=== PATIENT | female | born 1970 | race Caucasian/White ===

== ENCOUNTER 2016-12-21 00:08 | Emergency (ER) | payer MEDICAID ==
[~2016-12-21] VITALS: Ht 142.2 cm; Wt 55.5 kg
[~2016-12-21 00:08] MED LIST: AMOX1TAB10 PO; DOCU-144 PO; FAMO20TA18 PO; HYDR-906 PO; PANT20TA2 PO; POLY17PO6 PO; PRED50TA PO; SUCR1TAB56 PO
[2016-12-21 00:19] VITALS: Ht 142.2 cm; Wt 55.5 kg
[2016-12-21] MEDS ORDERED: SOD CHLORIDE 0.9% 1,000 ML IV STA (02:40)
[2016-12-21] MEDS ORDERED: ONDANSETRON 4 MG INJ IV STA (02:40)
[2016-12-21] MEDS ORDERED: LIDOCAINE/MYLANTA 40 ML BTL PO STA (02:40)
[2016-12-21 03:12] LABS: ADD SCAN DIFF NO
[2016-12-21 03:18] LABS: ADD UMIC YES; URINE BILIRUBIN (Dip) NEGATIVE (NEGATIVE); URINE BLOOD (Dip) TRACE (NEGATIVE); URINE COLOR LT. YELLOW (YELLOW); URINE GLUCOSE (Dip) NEGATIVE (NEGATIVE); URINE KETONES (Dip) NEGATIVE (NEGATIVE); URINE LEUKOCYTE ESTERASE (Dip) NEGATIVE (NEGATIVE); URINE NITRITE (Dip) NEGATIVE (NEGATIVE); URINE TOTAL PROTEIN (Dip) NEGATIVE (NEGATIVE); URINE UROBILINOGEN (Dip) 0.2 E.U./dL (0.1-1.0)
[2016-12-21 03:34] LABS: BASOPHILS % 0.5 % (0.0-2.0); EOSINOPHILS # 0.2 10^3/ul (0.0-0.5); EOSINOPHILS % 3.3 % (0.0-7.0); HEMATOCRIT 38.1 % (37.0-47.0); HEMOGLOBIN 13.4 g/dl (12.0-16.0); LYMPHOCYTES # 2.4 10^3/ul (0.8-2.9); LYMPHOCYTES % 35.6 % (15.0-51.0); MEAN CORPUSCULAR HEMOGLOBIN 30.6 pg (29.0-33.0); MEAN CORPUSCULAR HGB CONC 35.2 g/dl (32.0-37.0); MEAN PLATELET VOLUME 10.2 fl (7.4-10.4); MONOCYTE # 0.4 10^3/ul (0.3-0.9); NEUTROPHIL # 3.6 10^3/ul (1.6-7.5); NEUTROPHILS % 54.4 % (39.0-77.0); PLATELET COUNT 240 10^3/UL (140-415); RED BLOOD COUNT 4.38 10^6/ul (4.20-5.40); RED CELL DISTRIBUTION WIDTH 11.9 % (11.5-14.5); SQUAMOUS EPITHELIAL CELL,UR FEW; URINE RBCS 0-2 /HPF (0); WHITE BLOOD COUNT 6.7 10^3/ul (4.8-10.8)
[2016-12-21 03:35] LABS: BACTERIA,URINE RARE
[2016-12-21 03:55] LABS: ALANINE AMINOTRANSFERASE 26 IU/L (13-69); ALBUMIN 5.1 g/dl (3.3-4.9); ALBUMIN/GLOBULIN RATIO 1.75; ALKALINE PHOSPHATASE 91 IU/L (42-121); ANION GAP 12 (8-16); ASPARTATE AMINO TRANSFERASE 19 IU/L (15-46); BILIRUBIN,INDIRECT 0.3 mg/dl (0-1.1); BILIRUBIN,TOTAL 0.3 mg/dl (0.2-1.3); BLOOD UREA NITROGEN 10 mg/dl (7-20); CALCIUM 9.2 mg/dl (8.4-10.2); CARBON DIOXIDE 24 mmol/L (21-31); CHLORIDE 110 mmol/L (97-110); GLUCOSE 106 mg/dl (70-220); POTASSIUM 3.5 mmol/L (3.5-5.1); SODIUM 142 mmol/L (135-144)
[2016-12-21 04:09] LABS: TROPONIN-I < 0.012 ng/ml (0.00-0.12)
--- NOTE | 2016-12-21 04:18 | ERD ---
ER Documentation Chief Complaint Date/Time DATE: 12/21/16 TIME: 04:16 Chief Complaint EPIGASTRIC PAIN WITH NAUSEA X 1 HOUR. DIZZINESS 3 TIMES IN 1 HOUR HPI This is a 46 female, epigastric pain with nausea from an outpatient disease 3 times in the past hour as well. No fevers no chills. Pain is mild to moderate intensity, no exacerbating or alleviating factors. Burning sensation. No other current issues. ROS All systems reviewed and are negative except as per history of present illness. Medications Home Meds Active Scripts Prednisone* (Prednisone*) 50 Mg Tablet, 50 MG PO DAILY Y for INFLAMATION, #5 TAB Prov:KETTY TYLER PA-C 11/03/15 Amox Tr/Potassium Clavulanate (Amox Tr-K Clv 875-125 Mg Tab) 1 Tab Tablet, 1 TAB PO BID, #20 TAB Prov:KETTY TYLER PA-C 11/03/15 Pantoprazole* (Protonix*) 20 Mg Tablet.dr, 20 MG PO DAILY for 30 Days, TAB Prov:VITO CARBALLO MD 04/28/15 Famotidine* (Famotidine*) 20 Mg Tablet, 20 MG PO BID for 30 Days, TAB Prov:VITO CARBALLO MD 04/28/15 Polyethylene Glycol* (Miralax*) 17 Gm Powd.pack, 17 GM PO DAILY Y for CONSTIPATION for 30 Days, PACKET Prov:VITO CARBALLO MD 04/28/15 Docusate Sodium* (Colace*) 100 Mg Capsule, 100 MG PO BID for 30 Days, CAP Prov:VITO CARBALLO MD 04/28/15 Hydrocodone Bit-Acetaminophen ([place]) 5-325 Mg Tablet, 1 TAB PO Q4H Y for PAIN for 3 Days, TAB Prov:MONIQUE OLEARY MD 03/23/15 Reported Medications Sucralfate* (Carafate*) 1 Gm Tab, 1 GM PO AC MEALS AND BEDTIME, TAB 04/27/15 Allergies Allergies: Coded Allergies: morphine (Unverified Allergy, Unknown, TIGHTNESS OF CHEST, 11/02/15) PMhx/Soc History of Surgery: Yes (Cholecystectomy,Hysterectomy) Anesthesia Reaction: No Hx Neurological Disorder: No Hx Respiratory Disorders: No Hx Cardiac Disorders: No Hx Psychiatric Problems: No Hx Miscellaneous Medical Probl: Yes (Gallstones,Induced Menopause) Hx Alcohol Use: No Hx Substance Use: No Hx Tobacco Use: No Smoking Status: Never smoker Physical Exam Vitals Vital Signs Date Time Temp Pulse Resp B/P Pulse Ox O2 Delivery O2 Flow Rate FiO2 12/21/16 02:32 96.6 74 24 151/84 100 Room Air 12/21/16 00:19 96.6 87 24 159/89 100 Physical Exam Const: [] Head: Atraumatic Eyes: Normal Conjunctiva ENT: Normal External Ears, Nose and Mouth. Neck: Full range of motion..~ No meningismus. Resp: Clear to auscultation bilaterally Cardio: Regular rate and rhythm, no murmurs Abd: Soft, non tender, non distended. Normal bowel sounds Skin: No petechiae or rashes Back: No midline or flank tenderness Ext: No cyanosis, or edema Neur: Awake and alert Psych: Normal Mood and Affect Result Diagram: 12/21/16 0245 12/21/16 0245 Results 24 hrs Laboratory Tests Test 12/21/16 02:45 White Blood Count 6.710^3/ul Red Blood Count 4.3810^6/ul Hemoglobin 13.4g/dl Hematocrit 38.1% Mean Corpuscular Volume 87.0fl Mean Corpuscular Hemoglobin 30.6pg Mean Corpuscular Hemoglobin Concent 35.2g/dl Red Cell Distribution Width 11.9% Platelet Count 33008^3/UL Mean Platelet Volume 10.2fl Neutrophils % 54.4% Lymphocytes % 35.6% Monocytes % 6.0% Eosinophils % 3.3% Basophils % 0.5% Nucleated Red Blood Cells % 0.0/100WBC Neutrophils # 3.610^3/ul Lymphocytes # 2.410^3/ul Monocytes # 0.410^3/ul Eosinophils # 0.210^3/ul Basophils # 0.010^3/ul Nucleated Red Blood Cells # 0.010^3/ul Urine Color LT. YELLOW Urine Clarity CLEAR Urine pH 7.5 Urine Specific [place] 1.010 Urine Ketones NEGATIVE Urine Nitrite NEGATIVE Urine Bilirubin NEGATIVE Urine Urobilinogen 0.2 E.U./dL Urine Leukocyte Esterase NEGATIVE Urine Microscopic RBC 0-2/HPF Urine Microscopic WBC 0-2/HPF Urine Squamous Epithelial Cells FEW Urine Amorphous Phosphates FEW Urine Bacteria RARE Urine Hemoglobin TRACE Urine Glucose NEGATIVE% Urine Total Protein NEGATIVE Sodium Level 142mmol/L Potassium Level 3.5mmol/L Chloride Level 110mmol/L Carbon Dioxide Level 24mmol/L Anion Gap 12 Blood Urea Nitrogen 10mg/dl Creatinine 0.40mg/dl Glucose Level 106mg/dl Calcium Level 9.2mg/dl Total Bilirubin 0.3mg/dl Direct Bilirubin 0.00mg/dl Indirect Bilirubin 0.3mg/dl Aspartate Amino Transf (AST/SGOT) 19IU/L Alanine Aminotransferase (ALT/SGPT) 26IU/L Alkaline Phosphatase 91IU/L Troponin I < 0.012ng/ml Total Protein 8.0g/dl Albumin 5.1g/dl Globulin 2.90g/dl Albumin/Globulin Ratio 1.75 Lipase 119U/L Current Medications Medications (Trade) Dose Ordered Sig/Amina Route PRN Reason Start Time Stop Time Status Last Admin Dose Admin Sodium Chloride (NS) 1,000 ml @ 1,000 mls/hr Q1H STAT IV 12/21/16 02:40 12/21/16 03:39 DC 12/21/16 02:55 Ondansetron HCl (Zofran Inj) 4 mg ONCE STAT IV 12/21/16 02:40 12/21/16 02:49 DC 12/21/16 02:55 Miscellaneous Medication (Gi Cocktail (2)) 40 ml ONCE STAT PO 12/21/16 02:40 12/21/16 02:49 DC 12/21/16 02:54 Procedures/MDM EKG: Rate/Rhythm: [Normal Sinus Rhythm] QRS, ST, T-waves: [No changes consistent w/ acute ischemia] Impression: [No evidence of ischemia or arrhythmia] Chest X-ray 1V Interpreted by me: Soft Tissue: No acute abnormalities Bones: No acute abnormalities Mediastinum/Cardiac Silhouette/Lungs: [No acute abnormalities] Medical decision-making: This is a 46-year-old comes in for epigastric abdominal pain likely gastritic versus cholestatic in nature. No evidence of fever. No evidence of increased white count. Patient will be discharged home. Told return in 8 hours for serial abdominal exams. Departure Diagnosis: Primary Impression: Abdominal pain Condition: Stable DIAN JOHNSON Dec 21, 2016 04:17
[2016-12-21] MEDS ORDERED: TRAM50TA2 PO (04:25)
[2016-12-21] MEDS ORDERED: SUCR1TAB56 PO (04:25)
--- NOTE | 2016-12-21 04:31 | RADRPT ---
PROCEDURE: Chest. CLINICAL INDICATION: Chest pain. TECHNIQUE: Single frontal view of the chest was obtained. COMPARISON: None. FINDINGS: The cardiac silhouette is within normal limits. The aortic arch is unremarkable. There is no focal consolidation, vascular congestion or pleural effusion. There is no pneumothorax. IMPRESSION: No evidence for active cardiopulmonary disease. .Giles Uriarte MD, MD Date Time Electronically viewed and signed by .Giles Uriarte MD, on 12/21/2016 04:31 .T/
[2016-12-21 04:32] VITALS: BP 131/77; PULSE 71; RESP 24; TEMP 96.6
== END 2016-12-21 04:34 | disposition home or self-care (01) ==
LOC: E/R 00:08
DX: R10.13 Epigastric pain (principal); R11.0 Nausea
CPT/HCPCS: 71010; 80053; 81001; 83690; 84484; 85025; 93005; J2405; J7030; Z7610; 36415; 96374

== ENCOUNTER 2017-09-08 03:13 | Emergency (ER) | END 2017-09-08 04:39 | disposition home or self-care (01) ==

== ENCOUNTER 2018-04-23 04:52 | Emergency (ER) | END 2018-04-23 14:48 | disposition home or self-care (01) ==

== ENCOUNTER 2018-07-16 02:31 | Emergency (ER) | payer MEDICAID ==
[~2018-07-16] VITALS: Wt 53.3 kg
[~2018-07-16 02:31] MED LIST changes: +ACET500C5 PO; +AMOX500C2 PO; +IBUP-1542 PO; +ONDA4TAB14 PO; +TRAM50TA2 PO
[2018-07-16 02:34] VITALS: RESP 18
--- NOTE | 2018-07-16 02:58 | ERD ---
ER Documentation Chief Complaint Chief Complaint cough/sore throat/runny nose x 8 days HPI This is a 48-year-old female who presents emergency department with complaints of cough, sore throat, runny nose for about 8 days. LMP: Stated that it was 2013. A0. Denies headache, head injury, loss of consciousness, dizziness, neck pain, neck stiffness, throat pain, difficulty swallowing, difficulty breathing lying flat, shoulder pain, chest pain, back pain, abdominal pain, nausea, vomiting, constipation, diarrhea, urinary symptoms, or possibility being pre gnant, loss of bowel and bladder control, trauma, injury, falls, difficulty walking due to pain, numbness or tingling sensation, calf pain, recent travel, recent major surgery in the last 3 weeks, calf pain, recent long travel, recent exposure to any illness, recent antibiotic use in the last 3 months, fever, chills, seizures. Past medical history: Gastritis. GERD. Medication: Protonix. Surgical history: Cholecystectomy. Hysterectomy. Social: Denies smoking, use of alcoholic beverages, use of illegal drugs. ROS All systems reviewed and are negative except as per history of present illness. Medications Home Meds Active Scripts Benzonatate* (Tessalon Perle*) 100 Mg Capsule, 100 MG PO Q8H PRN for COUGH, #15 CAP Prov:DANIELLE BLEDSOE 07/16/18 Ibuprofen* (Motrin*) 600 Mg Tab, 600 MG PO Q6H PRN for PAIN AND OR ELEVATED TEMP, #30 TAB Prov:DANIELLE BLEDSOE 07/16/18 Prednisone* (Prednisone*) 20 Mg Tab, 60 MG PO DAILY for 5 Days, TAB Prov:DANIELLE BLEDSOE 07/16/18 Albuterol Sulfate* (Proair HFA*) 8.5 Gm Hfa.aer.ad, 2 PUFF INH Q4H PRN for WHEEZING AND SOB, #1 INHALER Prov:DANIELLE BLEDSOE 07/16/18 Amoxicillin/Potassium Clav (Amox-Clav 875-125 mg Tablet) 875-125 mg Tab, 1 TAB PO BID for 10 Days, #20 TAB Prov:DANIELLE BLEDSOE 07/16/18 Ondansetron (Ondansetron Odt) 4 Mg Tab.rapdis, 4 MG PO Q6H PRN for NAUSEA AND/OR VOMITING, #20 TAB Prov:JOSE MORRIS MD 04/23/18 Amoxicillin* (Amoxicillin*) 500 Mg Cap, 500 MG PO TID for 10 Days, CAP Prov:MARC BARTON NP 09/08/17 Acetaminophen* (Tylophen*) 500 Mg Capsule, 1 CAP PO Q6H PRN for PAIN AND OR ELEVATED TEMP, #20 CAP Prov:MARC BARTON NP 09/08/17 Ibuprofen* (Motrin*) 600 Mg Tab, 600 MG PO Q6H PRN for PAIN AND OR ELEVATED TEMP, #30 TAB Prov:MARC BARTON SHANK BREAKER 09/08/17 Tramadol HCl (Tramadol HCl) 50 Mg Tablet, 50 MG PO Q4 PRN for PAIN, #20 TAB Prov:DIAN JOHNSON 12/21/16 Sucralfate* (Carafate*) 1 Gm Tab, 1 GM PO QID, #20 TAB Prov:DIAN JOHNSON 12/21/16 Prednisone* (Prednisone*) 50 Mg Tablet, 50 MG PO DAILY PRN for INFLAMATION, #5 TAB Prov:KETTY TYLER PA-C 11/03/15 Amox Tr/Potassium Clavulanate (Amox Tr-K Clv 875-125 Mg Tab) 1 Tab Tablet, 1 TAB PO BID, #20 TAB Prov:KETTY TYLER PA-C 11/03/15 Pantoprazole* (Protonix*) 20 Mg Tablet.dr, 20 MG PO DAILY for 30 Days, TAB Prov:VITO CARBALLO MD 04/28/15 Famotidine* (Famotidine*) 20 Mg Tablet, 20 MG PO BID for 30 Days, TAB Prov:VITO CARBALLO MD 04/28/15 Polyethylene Glycol* (Miralax*) 17 Gm Powd.pack, 17 GM PO DAILY PRN for CONSTIPATION for 30 Days, PACKET Prov:VITO CARBALLO MD 04/28/15 Docusate Sodium* (Colace*) 100 Mg Capsule, 100 MG PO BID for 30 Days, CAP Prov:VITO CARBALLO MD 04/28/15 Hydrocodone Bit-Acetaminophen ([place]) 5-325 Mg Tablet, 1 TAB PO Q4H PRN for PAIN for 3 Days, TAB Prov:MONIQUE OLEARY MD 03/23/15 Reported Medications Sucralfate* (Carafate*) 1 Gm Tab, 1 GM PO AC MEALS AND BEDTIME, TAB 04/27/15 Allergies Allergies: Coded Allergies: morphine (Unverified Allergy, Unknown, TIGHTNESS OF CHEST, 11/02/15) PMhx/Soc History of Surgery: Yes (Cholecystectomy,Hysterectomy) Anesthesia Reaction: No Hx Neurological Disorder: No Hx Respiratory Disorders: No Hx Cardiac Disorders: No Hx Psychiatric Problems: No Hx Miscellaneous Medical Probl: Yes (Gallstones,Induced Menopause) Hx Alcohol Use: No Hx Substance Use: No Hx Tobacco Use: No Physical Exam Vitals Vital Signs Date Temp Pulse Resp B/P (MAP) Pulse Ox O2 O2 Flow FiO2 Time Delivery Rate 07/16/18 98.0 90 160/98 92 Room Air 04:06 (118) 07/16/18 97.2 91 18 159/100 99 02:34 (119) Physical Exam Const: No acute distress Head: Atraumatic Eyes: Normal Conjunctiva ENT: Normal External Ears, Nose and Mouth. Bilateral ears: TMs are not er ythematous. No mastoid tenderness. No hearing loss. Nose: There is frontal or maxillary sinus tenderness to palpation. Throat: Uvula is in midline and nondisplaced. Tonsils are +1 with no redness and no exudates. Tolerating secretions. Patent airway. Speaks full and clear sentences. No tripoding. Neck: Full range of motion. No meningismus. Resp: Clear to auscultation bilaterally Cardio: Regular rate and rhythm, no murmurs Abd: Soft, non tender, non distended. Normal bowel sounds Skin: No petechiae or rashes Back: No midline or flank tenderness Ext: No cyanosis, or edema Neur: Awake and alert. No neurological deficits. Psych: Normal Mood and Affect Procedures/MDM Diagnostic tests: Chest x-ray: No evidence for active cardiopulmonary disease. Treatment: Not applicable. Re-evaluation: Not applicable. Differential diagnosis I have low suspicion for sepsis, mastoiditis, peritonsillar abscess, meningitis, pneumonia, pulmonary tuberculosis, severe dehydration. Final diagnosis: Sinusitis. Bronchitis. Cough. Prescription: Augmentin. Motrin. Tylenol. Pro-air. Prednisone. Tessalon Perles. Follow-up with PCP in the next 24-48 hours. Come back here in the emergency department for any new symptoms or any worsening symptoms. All questions and concerns were answered. Patient and family members verbalized understanding and agreed with plan of care. Hemodynamically stable on discharge. Departure Diagnosis: Primary Impression: Cough Additional Impressions: Sinusitis Bronchitis Condition: Stable Additional Instructions: Follow-up with PCP in the next 24-48 hours. Come back here in the emergency department for any new symptoms or any worsening symptoms. DANIELLE BLEDSOE Jul 16, 2018 02:57
[2018-07-16] MEDS ORDERED: ALBU8.5H8 INH (03:48)
[2018-07-16] MEDS ORDERED: AMOX1TAB10 PO (03:48)
[2018-07-16] MEDS ORDERED: PRED20TA PO (03:49)
[2018-07-16] MEDS ORDERED: BENZ-6 PO (03:49)
[2018-07-16] MEDS ORDERED: IBUP-1542 PO (03:49)
[2018-07-16 04:06] VITALS: BP 160/98; PULSE 90
== END 2018-07-16 04:07 | disposition home or self-care (01) ==
LOC: FTE 02:31
DX: J32.9 Chronic sinusitis, unspecified (principal); J40 Bronchitis, not specified as acute or chronic
CPT/HCPCS: 71046; Z7502

== ENCOUNTER 2018-10-01 04:21 | Emergency (ER) | payer MEDICAID ==
[~2018-10-01] VITALS: Wt 52.5 kg
[~2018-10-01 04:21] MED LIST changes: +ALBU8.5H8 INH; +BENZ-6 PO; +MED4DP PO; +PRED20TA PO; +PROM5SYR2 PO
--- NOTE | 2018-10-01 06:44 | ERD ---
ER Documentation Chief Complaint Chief Complaint chest pain and cough possible exposure to tb HPI This is a 48-year-old female presents for intermittent chest pain and cough for the last 4 days. She has no prior history of coronary artery disease, she takes an inhaler intermittently, she states that she was recently exposed someone tuberculosis, her primary concern was that she may now have tuberculosis given the exposure. She has not had hemoptysis, no night sweats, no shortness of breath. There are no alleviating or aggravating factors. ROS All systems reviewed and are negative except as per history of present illness. Medications Home Meds Active Scripts Pantoprazole* (Protonix*) 20 Mg Tablet.dr, 20 MG PO DAILY for 30 Days, TAB Prov:VITO CARBALLO MD 04/28/15 Discontinued Reported Medications Sucralfate* (Carafate*) 1 Gm Tab, 1 GM PO AC MEALS AND BEDTIME, TAB 04/27/15 Discontinued Scripts Promethazine HCl/Codeine (Prometh-Codein 6.25-10 mg/5 ml) 5 Ml Syrup, 5 ML PO Q8, #120 ML Prov:KETTY TYLER PA-C 08/27/18 Methylprednisolone* (Medrol* DOSE PACK) 4 Mg/Dose-Pack Tab.ds.pk, 4 MG PO . D IRECTED, #1 PACKET Prov:KETTY TYLER PA-C 08/27/18 Benzonatate* (Tessalon Perle*) 100 Mg Capsule, 100 MG PO Q8H PRN for COUGH, #15 CAP Prov:PASILADANIELLE RAUSCH 07/16/18 Ibuprofen* (Motrin*) 600 Mg Tab, 600 MG PO Q6H PRN for PAIN AND OR ELEVATED TEMP, #30 TAB Prov:PASILADANIELLE RAUSCH 07/16/18 Prednisone* (Prednisone*) 20 Mg Tab, 60 MG PO DAILY for 5 Days, TAB Prov:PASILADANIELLE RAUSCH F 07/16/18 Albuterol Sulfate* (Proair HFA*) 8.5 Gm Hfa.aer.ad, 2 PUFF INH Q4H PRN for WHEEZING AND SOB, #1 INHALER Prov:PASILADANIELLE RAUSCH F 07/16/18 Amoxicillin/Potassium Clav (Amox-Clav 875-125 mg Tablet) 875-125 mg Tab, 1 TAB PO BID for 10 Days, #20 TAB Prov:DANIELLE BLEDSOE 07/16/18 Ondansetron (Ondansetron Odt) 4 Mg Tab.rapdis, 4 MG PO Q6H PRN for NAUSEA AND/OR VOMITING, #20 TAB Prov:JOSE MORRIS MD 04/23/18 Amoxicillin* (Amoxicillin*) 500 Mg Cap, 500 MG PO TID for 10 Days, CAP Prov:MARC BARTON [employer]LE LEVELER MACHINE 09/08/17 Acetaminophen* (Tylophen*) 500 Mg Capsule, 1 CAP PO Q6H PRN for PAIN AND OR ELEVATED TEMP, #20 CAP Prov:MARC BARTON [employer]EL[employer]ACHINE 09/08/17 Ibuprofen* (Motrin*) 600 Mg Tab, 600 MG PO Q6H PRN for PAIN AND OR ELEVATED TEMP, #30 TAB Prov:MARC BARTON [employer]LE [employer]EVEL[employer] MACHINE 09/08/17 Tramadol HCl (Tramadol HCl) 50 Mg Tablet, 50 MG PO Q4 PRN for PAIN, #20 TAB Prov:DIAN JOHNSON 12/21/16 Sucralfate* (Carafate*) 1 Gm Tab, 1 GM PO QID, #20 TAB Prov:DIAN JOHNSON 12/21/16 Prednisone* (Prednisone*) 50 Mg Tablet, 50 MG PO DAILY PRN for INFLAMATION, #5 TAB Prov:KETTY TYLER PA-C 11/03/15 Amox Tr/Potassium Clavulanate (Amox Tr-K Clv 875-125 Mg Tab) 1 Tab Tablet, 1 TAB PO BID, #20 TAB Prov:KETTY TYLER PA-C 11/03/15 Famotidine* (Famotidine*) 20 Mg Tablet, 20 MG PO BID for 30 Days, TAB Prov:VITO CARBALLO MD 04/28/15 Polyethylene Glycol* (Miralax*) 17 Gm Powd.pack, 17 GM PO DAILY PRN for CONSTIPATION for 30 Days, PACKET Prov:VITO CARBALLO MD 04/28/15 Docusate Sodium* (Colace*) 100 Mg Capsule, 100 MG PO BID for 30 Days, CAP Prov:VITO CARBALLO MD 04/28/15 Hydrocodone Bit-Acetaminophen ([place]) 5-325 Mg Tablet, 1 TAB PO Q4H PRN for PAIN for 3 Days, TAB Prov:MONIQUE OLEARY MD 03/23/15 Allergies Allergies: Coded Allergies: morphine (Unverified Allergy, Unknown, TIGHTNESS OF CHEST, 10/01/18) PMhx/Soc History of Surgery: Yes (Cholecystectomy,Hysterectomy) Anesthesia Reaction: No Hx Neurological Disorder: No Hx Respiratory Disorders: No Hx Cardiac Disorders: No Hx Psychiatric Problems: No Hx Miscellaneous Medical Probl: Yes (Gallstones,Induced Menopause) Hx Alcohol Use: No Hx Substance Use: No Hx Tobacco Use: No Smoking Status: Never smoker Physical Exam Vitals Vital Signs Date Temp Pulse Resp B/P (MAP) Pulse Ox O2 O2 Flow FiO2 Time Delivery Rate 10/01/18 77 16 126/77 100 Room Air 05:25 (93) 10/01/18 97.9 72 20 128/84 98 04:25 (99) Physical Exam Const: No acute distress Head: Atraumatic Eyes: Normal Conjunctiva ENT: Normal External Ears, Nose and Mouth. Neck: Full range of motion. No meningismus. Resp: Clear to auscultation bilaterally Cardio: Regular rate and rhythm, no murmurs Abd: Soft, non tender, non distended. Normal bowel sounds Skin: No petechiae or rashes Back: No midline or flank tenderness Ext: No cyanosis, or edema Neur: Awake and alert Psych: Normal Mood and Affect Result Diagram: 10/01/18 0533 10/01/18 0533 Results 24 hrs Laboratory Tests Test 10/01/18 05:33 White Blood Count 6.6 10^3/ul Red Blood Count 4.19 10^6/ul Hemoglobin 12.6 g/dl Hematocrit 35.8 % Mean Corpuscular Volume 85.4 fl Mean Corpuscular Hemoglobin 30.1 pg Mean Corpuscular Hemoglobin Concent 35.2 g/dl Red Cell Distribution Width 11.9 % Platelet Count 273 10^3/UL Mean Platelet Volume 9.6 fl Immature Granulocytes % 0.300 % Neutrophils % 46.5 % Lymphocytes % 41.5 % Monocytes % 5.1 % Eosinophils % 6.0 % Basophils % 0.6 % Nucleated Red Blood Cells % 0.0 /100WBC Immature Granulocytes # 0.020 10^3/ul Neutrophils # 3.1 10^3/ul Lymphocytes # 2.8 10^3/ul Monocytes # 0.3 10^3/ul Eosinophils # 0.4 10^3/ul Basophils # 0.0 10^3/ul Nucleated Red Blood Cells # 0.0 10^3/ul Sodium Level 142 mmol/L Potassium Level 3.5 mmol/L Chloride Level 105 mmol/L Carbon Dioxide Level 27 mmol/L Anion Gap 10 Blood Urea Nitrogen 14 mg/dl Creatinine 0.45 mg/dl Est Glomerular Filtrat Rate mL/min > 60 mL/min Glucose Level 112 mg/dl Calcium Level 9.6 mg/dl Troponin I < 0.012 ng/ml Procedures/MDM 48-year-old female presents with cough and chest pain. My suspicion of the patient most likely has a viral respiratory infection such as bronchitis, she is afebrile and nontoxic-appearing, at this point I do not suspect a bacterial infection such as pneumonia. Regarding her chest pain, her symptoms overall appear to be infectious in nature, I have a low suspicion for coronary artery disease or pulmonary embolism, she had a troponin, which was negative, given that her symptoms are now greater than 8 hours duration, and as noted above appear to be infectious in nature, I have a low suspicion for ACS. Her heart score places her at low risk, I discussed findings with patient, and did recommend follow-up with primary care doctor, at discharge the patient was in no acute distress. EKG: Rate/Rhythm: Normal Sinus Rhythm QRS, ST, T-waves: No changes consistent w/ acute ischemia Impression: No evidence of ischemia or arrhythmia Chest X-ray 1V Interpreted by me: Soft Tissue: No acute abnormalities Bones: No acute abnormalities Mediastinum/Cardiac Silhouette/Lungs: No acute abnormalities Departure Diagnosis: Primary Impression: Chest pain Chest pain type: unspecified Qualified Codes: R07.9 - Chest pain, unspecified Additional Impression: Cough Condition: Stable Patient Instructions: Chest Pain, Uncertain Cause (Child) JOSE MORRIS MD Oct 01, 2018 06:44
[2018-10-01 07:27] VITALS: BP 132/71; PULSE 81; RESP 16
== END 2018-10-01 07:28 | disposition home or self-care (01) ==
LOC: E/R 04:21
DX: R07.9 Chest pain, unspecified (principal); R05 Cough; I25.10 Atherosclerotic heart disease of native coronary artery without angina pectoris
CPT/HCPCS: 36415; 71045; 80048; 84484; 85025; 93005; Z7502